=== PATIENT | female | born 1935 | race Two or more races ===

== ENCOUNTER 2017-06-28 14:24 | Outpatient (CLI) | payer MEDICARE, OTHER ==
[~2017-06-28] VITALS: Ht 154.9 cm; Wt 86.2 kg
[2017-06-28] MEDS ORDERED: VENLAFAXINE HCL50 MG ORAL (15:10)
[2017-06-28] MEDS ORDERED: SIMVASTATIN40 MG ORAL (15:10)
[2017-06-28] MEDS ORDERED: TYLENOL EXTRA500 MG ORAL (15:10)
[2017-06-28] MEDS ORDERED: AMBIEN5 MG ORAL (15:10)
[2017-06-28] MEDS ORDERED: XARELTO20 MG ORAL (15:10)
[2017-06-28] MEDS ORDERED: NYSTATIN-TRIAMC15 G2 TP (15:10)
[2017-06-28] MEDS ORDERED: AMOXICILLIN125 MG ORAL (15:10)
[2017-06-28] MEDS ORDERED: CARVEDILOL3.125 MG ORAL (15:10)
[2017-06-28] MEDS ORDERED: ASPIR 8181 MG ORAL (15:10)
[2017-06-28] MEDS ORDERED: FUROSEMIDE40 MG/5 ML ORAL (15:10)
[2017-06-28] MEDS ORDERED: LOSARTAN POTASS25 MG ORAL (15:10)
[2017-06-28] MEDS ORDERED: FOLIC ACID1 MG ORAL (15:10)
[2017-06-28] MEDS ORDERED: PAZEO2.5 ML OP (15:13)
[2017-06-28] MEDS ORDERED: VITAMIN D1000 UNI1 ORAL (15:13)
[2017-06-28] MEDS ORDERED: DICLOFENAC SODI25 MG ORAL (15:13)
[2017-06-28] MEDS ORDERED: COLACE100 MG ORAL (15:13)
[2017-06-28] MEDS ORDERED: RESTASIS1 EACH BOTH EYES (15:13)
[2017-06-28] MEDS ORDERED: OMEGA 3 500 SO1 EACH PO (15:13)
[2017-06-28] MEDS ORDERED: BENADRYL25 M3 PO (15:13)
[2017-06-28] MEDS ORDERED: ESTRACE42.5 GM PV (15:13)
--- NOTE | 2017-06-28 15:15 | GI Initial Consult Note ---
History of Present Illness General Date patient seen: Jun 28, 2017 Time patient seen: 15:04 Referring physician: Sancho PRICE Reason for Consultation: SBCE Present Illness HPI 82 year old female patient referred by Dr. Price for small bowel capsule endoscopy. Per the patient, she had a EGD/colonoscopy 8 years ago which is being deferred at this time given her advanced age. She presents today with low back pain and bilaterally knee pain. Denies any weight loss or changes in dietary habits. No GI symptoms noted at this time. Home Meds Reported Medications Cholecalciferol (Vitamin D3)* (VITAMIN D*) 1,000 Unit Tablet, 5000 UNITS ORAL Y , TAB 06/28/17 Bryan-3/Dha/Epa/Fish Oil (Bryan 3 500 Softgel) 1 Each Capsule, 1 EACH PO Y, CAP 06/28/17 Docusate Sodium* (COLACE*) 100 Mg Capsule, 100 MG ORAL THREE TIMES A DAY Y, CAP 06/28/17 Olopatadine HCl (Pazeo) 2.5 Ml Drops, 2.5 ML OP Y, ML 06/28/17 Cyclosporine (RESTASIS) 1 Each Droperette, 1 DROP BOTH EYES EVERY 12 HOURS Y, # 1 EA 0 Refills 06/28/17 Diclofenac Sod* (VOLTAREN*) 25 Mg Tablet.dr, 25 MG ORAL THREE TIMES A DAY Y, TAB 06/28/17 Estradiol* (ESTRACE*) 42.5 Gm Cream.appl, 1 APPLIC PV DAILY, GM 06/28/17 Diphenhydramine HCl (Benadryl) 25 Mg Capsule, 25 MG PO, CAP 06/28/17 Nystatin/Triamcin (NYSTATIN-TRIAMCINOLONE CREAM) 15 Gm Cream..g., 15 GM TP, GM 06/28/17 Amoxicillin (AMOXICILLIN) Unknown Strength Tab.chew, ORAL THREE TIMES A DAY, TAB 06/28/17 Acetaminophen* (TYLENOL EXTRA STRENGTH*) 500 Mg Tablet, 500 MG ORAL Q6H Y, TAB 0 Refills 06/28/17 Zolpidem Tartrate* (AMBIEN*) 5 Mg Tablet, 5 MG ORAL BEDTIME Y, TAB 06/28/17 Folic Acid* (FOLIC ACID*) 1 Mg Tablet, 1 MG ORAL DAILY, TAB 06/28/17 Furosemide (FUROSEMIDE) Unknown Strength Solution, ORAL DAILY, ML 06/28/17 Venlafaxine Hcl (VENLAFAXINE HCL) 50 Mg Tablet, 75 MG ORAL THREE TIMES A DAY, TAB 06/28/17 Losartan Potassium* (LOSARTAN POTASSIUM*) 25 Mg Tablet, 25 MG ORAL DAILY, TAB 06/28/17 Simvastatin (ZOCOR) 40 Mg Tablet, 40 MG ORAL BEDTIME, TAB 06/28/17 Rivaroxaban (XARELTO) 20 Mg Tablet, 75 MG ORAL for 30 Days, MG 0 Refills 06/28/17 Aspirin* (ASPIR 81*) 81 Mg Tablet.dr, 81 MG ORAL DAILY, TAB 06/28/17 Carvedilol* (CARVEDILOL*) 3.125 Mg Tablet, 3.125 MG ORAL EVERY 12 HOURS, TAB 06/28/17 Med list reviewed/reconciled: Yes Allergies: Uncoded Allergies: ANTIBIOTICS (Allergy, Mild, Itching, 06/28/17) Patient History History Provided By: Patient PMH Narrative CAD CHF iron deficiency anemia OB stool negative PSHx B Knee replacement L/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 Social History: Denies: smoking, alcohol use, drug use, other Review of Systems All Other Systems: negative except mentioned in HPI Physical Exam T 97.5 BP 145/56 P 65 HT 5'1 WT 190 lbs Sp02 EP Interpretation: reviewed General Appearance: normal inspection, well appearing, no apparent distress, alert Head: normocephalic EENT: PERRL/EOMI, normal ENT inspection Neck: full range of motion, supple Respiratory: normal breath sounds, no respiratory distress Cardiovascular: normal rate Gastrointestinal: non tender, soft, normal bowel sounds Genitourinary: no CVA tenderness Musculoskeletal: normal inspection, back normal Neurologic: normal inspection, alert, oriented x3, responsive Psychiatric: normal inspection, judgement/insight normal, memory normal Skin: normal inspection, normal color, no rash, warm/dry Lymphatic: normal inspection, no adenopathy GI: Plan Problems: (1) Iron deficiency anemia (2) Encounter for diagnostic endoscopy (3) CHF (congestive heart failure) (4) CAD (coronary artery disease) Plan SBCE scheduled for 07/04/17. - CLD and prep instructions day prior procedure given and acknowledged by patient. Seen with Dr. London. Thank you for referring this patient. Kati Chew N.P. Jun 28, 2017 15:15
[2017-06-28] MEDS ORDERED: PLAVIX75 MG ORAL (15:44)
[2017-06-28 15:46] VITALS: BP 145/56
== END 2017-06-28 15:15 | disposition home or self-care (01) ==
LOC: PAN 14:24
DX: M54.5 Low back pain (principal); M25.562 Pain in left knee; M25.561 Pain in right knee; D50.9 Iron deficiency anemia, unspecified; I50.9 Heart failure, unspecified; I25.10 Atherosclerotic heart disease of native coronary artery without angina pectoris; Z96.653 Presence of artificial knee joint, bilateral; Z95.0 Presence of cardiac pacemaker; Z88.8 Allergy status to other drugs, medicaments and biological substances; Z79.82 Long term (current) use of aspirin
CPT/HCPCS: 99201

== ENCOUNTER → 2017-07-06 | Outpatient (CLI) | payer MEDICARE, OTHER ==
[~2017-07-06] MED LIST: AMBIEN5 MG ORAL; AMOXICILLIN125 MG ORAL; ASPIR 8181 MG ORAL; BENADRYL25 M3 PO; CARVEDILOL3.125 MG ORAL; COLACE100 MG ORAL; DICLOFENAC SODI25 MG ORAL; ESTRACE42.5 GM PV; FOLIC ACID1 MG ORAL; FUROSEMIDE40 MG/5 ML ORAL; LOSARTAN POTASS25 MG ORAL; NYSTATIN-TRIAMC15 G2 TP; OMEGA 3 500 SO1 EACH PO; PAZEO2.5 ML OP; PLAVIX75 MG ORAL; RESTASIS1 EACH BOTH EYES; SIMVASTATIN40 MG ORAL; TYLENOL EXTRA500 MG ORAL; VENLAFAXINE HCL50 MG ORAL; VITAMIN D1000 UNI1 ORAL; XARELTO20 MG ORAL
[2017-07-06 10:21] VITALS: BP 137/61
--- NOTE | 2017-07-06 13:02 | GI Progress Note ---
Assessment/Plan Problems: (1) Encounter for diagnostic endoscopy ICD Codes: Z01.818 - Encounter for other preprocedural examination SNOMED: 338366688, 814559222 (2) Iron deficiency anemia ICD Codes: D50.9 - Iron deficiency anemia, unspecified SNOMED: 63593823 (3) CAD (coronary artery disease) ICD Codes: I25.10 - Atherosclerotic heart disease of tetlin coronary artery without angina pectoris SNOMED: 30350132 (4) CHF (congestive heart failure) ICD Codes: I50.9 - Heart failure, unspecified SNOMED: 45089030 Status: stable Status Narrative Discussed with Dr. London. Assessment/Plan SBCE today. RTC tomorrow to return equipment Subjective Gastrointestinal/Abdominal: Reports: no symptoms Objective Last 24 Hour Vital Signs Date Time Temp Pulse Resp B/P (MAP) Pulse Ox O2 Delivery O2 Flow Rate FiO2 07/06/17 10:21 97.8 80 18 137/61 General Appearance: no apparent distress, alert Cardiovascular: normal rate Respiratory/Chest: normal breath sounds, no respiratory distress Abdominal Exam: normal bowel sounds, non tender, soft Extremities: normal range of motion Kati Chew N.P. Jul 06, 2017 13:02
== END | disposition home or self-care (01) ==
LOC: PAN 09:22
DX: Z01.818 Encounter for other preprocedural examination (principal); D50.9 Iron deficiency anemia, unspecified; I25.10 Atherosclerotic heart disease of native coronary artery without angina pectoris; I50.9 Heart failure, unspecified